=== PATIENT | male | born 1940 | race Caucasian/White ===

== ENCOUNTER 2021-09-14 09:43 | Outpatient (CLI) | payer MEDICARE, SELFPAY ==
[2021-09-14 11:33] LABS: Hemoglobin A1C 5.6 % (<5.7)
== END 2021-09-14 09:44 | disposition home or self-care (01) ==
LOC: ANHSURGERY 09:49
PROVIDERS: PCP Nurse Practitioner; Visit Provider Urology
DX: Z01.818 Encounter for other preprocedural examination (principal); N52.9 Male erectile dysfunction, unspecified
CPT/HCPCS: 36415; 83036; 87086

== ENCOUNTER 2021-09-23 00:22 | Day surgery (SDC) | payer MEDICARE, SELFPAY ==
[2021-09-14 09:56] VITALS: BMI 28.3
--- NOTE | 2021-09-14 10:21 | PC.NURSE ---
Report to the Outpatient Waiting Room, entrance under the green pavilion located off [facility], at time __1000 on date __09/23/21 . OR Time:1200 . - You and your visitor will be asked a series of questions to screen for COVID 19 for your protection. - A mask is required within the hospital. Preoperative COVID Testing Requirements: No COVID Test needed if: (proof is required; if not received patient will have Rapid Test prior to entry) - Patient has received COVID Vaccine at least 14 days prior to procedure date or - Patient has positive COVID test result within last 90 days of surgery date. COVID Test needed if above criteria is not met If not COVID vaccinated a COVID test must be conducted within 72 hours of surgery and patient is asked to isolate self from time of testing until procedure. You will go to the [facility] for your COVID testing. The [facility] is located at the corner of [address] [facility]. You will only be called if COVID results are positive and your surgeon may reschedule your elective surgery date. Patients may have clear liquids (water, carbonated beverages, clear teas, apple juice) until 3 hours prior to surgery with a maximum of 20 ounces. - No food from midnight until time of surgery - Infants may have breast milk until 4 hours before surgery, infant formula 6 hours prior to surgery. - Children will be allowed to drink immediately following surgery. If applicable, please bring a bottle or sippy cup to assist with drinking. Juice, water, soda, and popsicles are readily available. For infants on formula, please bring formula the day of surgery. Pacifiers are allowed. Take the following medications with a SIP of water the morning of surgery: ___NONE Medications to discontinue per physician _PT STATES _ALL VITAMINS AND SUPPLEMENTS __7 DAYS PRE OP PER DR VICTOR Date to take last dose___2/26/22 Please no make-up, nail welsh, hairspray, perfume, deodorant, or body powder the day of surgery. No jewelry (including any body piercings) or valuables the day of surgery, leave them at home. Please take a shower or bath the night before, or the morning of, surgery with an antibacterial soap. Wear comfortable, loose fitting clothing. Children are encouraged to wear pajamas. - Jewelry must be removed prior to entering the operating room. Rings and piercings that are not removed may be cut off. - The hospital will not accept responsibility for valuables. - Please leave all valuables, including medications, at home the day of surgery. If you are going home after surgery, a licensed parts driver must drive you home. - NO public transportation without another adult. - We recommend that an adult stay with you for 24 hours following discharge. - We also recommend that you do not drive, make important decision, drink alcoholic beverages, or take any drugs that were not prescribed by your health care provider for at least 24 hours after your discharge time. For Pediatric surgeries, we recommend two adults accompany the child home (only one inside the building at this time). One visitor will be allowed to accompany the patient into the hospital. Patients visitor will be instructed to remain with patient at all times or leave the building. We will allow the visitor to come back to the postoperative area when patient is ready. Follow any additional instructions given to you from your surgeon. Telephone instructions given to __PATIENT and asked if any additional questions and then verbalized understanding. Patient advised to call surgeon office or pre surgery nurse liaison [phone] if any additional questions.
[2021-09-14 10:36] VITALS: BP 133/68; PULSE 59; RESP 18; TEMP 36.7; O2SAT 99
[2021-09-23] VITALS (7 sets, daily range): BP systolic 117–162; BP diastolic 53–78; PULSE 58–82; RESP 14–20; TEMP 36.3–36.4; O2SAT 96–100; BMI 27.6
[2021-09-23] MEDS: GENTAMICIN SULFATE INJ 425 MG in DEXTROSE 5% 100 ML 100 MG IVPB (11:05)
[2021-09-23] MEDS: LACTATED RINGERS 1,000 ML 30 ML IV CONT ×2 (11:05→15:35)
--- NOTE | 2021-09-23 11:09 | WPDANESEPPF ---
Anes - Initial Pre Proc Eval Procedure: Operation Date: 09/23/21 12:00 Proposed Procedures p Insertion Inflatable Penile Implant - Marcello King MD Date/Time: 09/23/21 11:09 Surgeon: Marcello King MD Pre Op Diagnosis: Erectile Dysfunction Patient Data Age: 81 Gender: M Height: 1.75 m Weight: 85 kg Last Vital Signs Temp 36.4 C L 09/23/21 10:59 Pulse 58 L 09/23/21 10:59 Resp 16 09/23/21 10:59 BP 123/53 L 09/23/21 10:59 Pulse Ox 100 09/23/21 10:59 Allergies Allergy/AdvReac Type Severity Reaction Status Date / Time sulfamethoxazole AdvReac Unknown Verified 09/23/21 11:00 [From Bactrim] trimethoprim [From Bactrim] AdvReac Unknown Verified 09/23/21 11:00 Home Medications Medication Instructions Recorded Confirmed Type B-complex with vitamin C 1 tablet PO DAILY 06/03/21 09/14/21 History fluticasone propionate 50 1 spray INTRANASAL PRN PRN 06/03/21 09/14/21 History mcg/actuation nasal spray,suspension lisinopril 20 mg tablet 20 mg PO BID 06/03/21 09/23/21 History loratadine 10 mg tablet 10 mg PO PRN PRN 06/03/21 09/14/21 History multivitamin 1 tablet PO DAILY 06/03/21 09/14/21 History omega-3 fatty acids 500 mg capsule 500 mg PO DAILY 06/03/21 09/14/21 History propranolol 20 mg tablet 20 mg PO Q12H 06/03/21 09/23/21 History Patient hx anesthesia problems: none Family hx anesthesia problems: none Results Review: All pre-operative results and documents have been reviewed as part of the pre-operative evaluation. [facility] Past Medical History Medical History History of kidney stones HTN (hypertension) Family History Family History Father No problems noted. Mother Hypothyroidism Sibling Drug abuse and dependence Social History Social History Smoking status: Never smoker Smokeless tobacco user: chewing tobacco Alcohol intake: never Substance use: never Living arrangements: with family Gender identity (if verbalized by the patient): Male Sexual Orientation (if Verbalized by the Patient): Straight or Heterosexual Spiritual care concerns: No Anes - Eval Final PreProcedure Day of Procedure 09/23/21 11:09 Patient weight: overweight Heart: regular rate and rhythm Lungs: clear to auscultation Airway: Mallampati scale class II Neurological: alert and oriented Last oral intake: >/= 8 hours ASA classification: II Emergent: no Anesthetic plan: proceed Anesthesia type and monitoring: general LMA and standard monitoring Results Review: All pre-operative results and documents have been reviewed as part of the pre-operative evaluation. Informed Consent: The patient's anesthetic plan and its attendant risks and benefits were discussed with the patient/family/POA. Questions were solicited and answers provided to the satisfaction of the patient/family/POA.
--- NOTE | 2021-09-23 12:20 | WPDHPUPDATE1 ---
History and Physical Update Update Date/Time: 09/23/21 12:20 History and Physical has been reviewed, including an updated exam of the patient. There are NO changes in the patient's condition. Risks, benefits, and alternatives have been discussed and questions answered. Patient agrees to proceed with procedure.
[2021-09-23] MEDS: ceFAZolin SODIUM 1 GM VIAL IRRIGATION (13:45)
--- NOTE | 2021-09-23 15:38 | W.PM.PROC2 ---
Procedure Note - Detailed Date of Procedure 09/23/21 Pre-op Diagnosis Erectile Dysfunction Post-op Diagnosis same Procedure Performed 1. Insertion of 3-piece inflatable penile prosthesis. 2. Artificial erection using pharmacological agent. 3. Cystoscopy and complex Hernandez catheter placement Surgeon Marcello King MD Anesthesia general Description of Procedure Informed consent obtained, patient taken to the operating room and given preoperative IV antibiotics with vancomycin and gentamicin. Additionally the patient has been taking oral levofloxacin and done a 3-day wash with Hibiclens. The patient was shaved. He was then prepped with Betadine scrub and paint followed by ChloraPrep. Sterile drapes were placed. We again prepped with ChloraPrep. We attempted to place a 16-Occitan Hernandez catheter, however there was significant resistance. We attempted to place a 16 coude catheter and again met resistance. 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 I was able to advance a wire through the anterior correct lumen and then over the wire advanced the cystoscope. Inspection of the bladder and revealed no mucosal abnormalities, there was moderate trabeculation. Over the wire a 16 F [place] tip catheter was inserted with return of clear urine. We then performed a pharmacologically induced erection with dilute lidocaine. There was a symmetric, straight erection. We then made a penoscrotal 3 cm incision. We dissected bluntly down to identify the corporal bodies taking great care not to injure the urethra. Stay sutures of 2-0 PDS were placed in the corporal body. We sharply opened the corpora. We then serially dilated up to a 12 Love dilator. We then measured the corpora. Measurements were 11.5 cm proximally and 13 cm distally. We irrigated and there was no injury. We then performed an identical procedure on the contralateral side. Measurements were 12 cm proximal, 12.5 cm distal. Dilators were placed into the corpora bilaterally confirming that there was no crossover. We elected to place an AMS CX device 21 cm + 3.5 cm of rear tip extenders. We again irrigated the corporal bodies. We then inserted the prosthesis. We inflated using a surrogate reservoir and the device sat nicely with tips in the mid glans. We then deflated. We then closed the pre-placed 2-0 PDS sutures. We again inflated using the surrogate reservoir with an excellent cosmetic result. We then made a left lower quadrant incision for approximately 2 cm. We bluntly dissected down to the external oblique fascia. The fascia was opened. We then the rectus muscle and created a space superiorly in the sub rectus. We emptied the bladder prior to our incision. We then irrigated copiously. We pre-placed 0 Vicryl sutures. We placed the reservoir in the sub rectus space. We fill it with 100 mL and there was no back pressure. We then left 100 mL in the reservoir. Our pre-placed external oblique fascia sutures were closed. We then made a subdartos pouch in the midline for the pump placement. It sat nicely in the inferior scrotum. We then closed the hiatus with 3-0 Vicryl suture. The tubing was then brought up to the abdominal incision. Using the quick connect device, we connected the pump to the reservoir. We then cycled the device again and it functioned nicely. We then removed the stay sutures through the glans. We then again irrigated copiously. We closed the scrotal incision with a transverse followed by longitudinal 3-0 Vicryl sutures and then 3-0 Monocryl skin closure. The left lower quadrant incision was closed with 2-0 Vicryl to Michael's, 3-0 Vicryl deep dermal layer and a 4-0 Monocryl subcuticular closure. Glue was placed over all incisions. A compressive dressing was placed. Patient was awakened and taken to recovery room in stable condition. IV FLUIDS Per anesthesia. COMPLICATIONS None. EBL Minimal. FOLLO
[2021-09-23] MEDS: BUPIVACAINE HCL 0.25% PF 30 ML VIAL INFILTRATE (15:39)
[2021-09-23] MEDS: fentaNYL CITRATE INJ (*CRX) 100 MCG/2 ML VIAL 25 MCG IV PUSH (15:56)
[2021-09-23] MEDS: oxyCODONE HCL (*CRX) 5 MG TAB IR PO (16:59)
== END 2021-09-23 17:12 | disposition home or self-care (01) ==
PROVIDERS: PCP Neurological Surgery; Visit Provider Urology
PROC: (CPT 54405; principal; 2021-09-23 12:00)
DX: N52.9 Male erectile dysfunction, unspecified (principal); I10 Essential (primary) hypertension; F17.220 Nicotine dependence, chewing tobacco, uncomplicated
CPT/HCPCS: 54405; 54235; 36415; 83036; 87086; A9270; C1769; C1813; J0330; J0690; J1170; J1580; J2405; J2704; J3010; J3370; J7030; J7120